=== PATIENT | male | born 1925 | race Caucasian/White ===

== ENCOUNTER 2016-05-05 21:46 | Emergency (ER) | payer OTHER ==
[~2016-05-05] VITALS: Ht 175.3 cm; Wt 72.7 kg
[2016-05-05 21:52] VITALS: Ht 175.3 cm; Wt 72.7 kg
--- NOTE | 2016-05-05 23:00 | RADRPT ---
PROCEDURE: CT BRAIN WITHOUT CONTRAST CLINICAL INDICATION: 89-year-old male with altered mental status. TECHNIQUE: The study was performed utilizing GE J[employer]le[employer] VCT 64-slice CT scanner. Direct axial sections were obtained from the foramen magnum to the vertex without the use of intravenous contrast material. Sagittal and coronal reformations were obtained. Automated exposure control and iterativ e reconstruction techniques were utilized for this examination. The images were viewed on a PACS [employer]. CTD/vol = 45.0 mGy; Total Exam DLP = 720.2 mGy-cm. COMPARISON: None. FINDINGS: There is moderate degree of diffuse cortical and central atrophy with compensatory ventricular enlar gement. There is no evidence for mass effect or midline shift. There are periventricular and deep white matter areas of decreased density consistent with microangiopathic ischemic changes. 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 There is a small lacunar infarct within the posterior bod y of the left caudate nucleus extending into the left dos santos radiata. There is no evidence for acute intra or extra-axial blood. Calcifications are seen within the intracranial carotid arteries bilate rally. The bony calvarium is intact. There is mild polypoidal mucosal thickening within the maxillar y sinuses bilaterally. No air-fluid levels are noted. The mastoid air cells are without significan t soft tissue. IMPRESSION: 1. Moderate diffuse atrophy. 2. Microangiopathic ischemic changes. 3. Old lacunar infarcts within the bilateral thalami, left basal ganglia and dos santos radiata. 4. Vascular calcifications. 5. Polypoidal mucosal thickening maxillary sinuses. .Tucker Strickland MD, MD Date Time Electronically viewed and signed by .Tucker Strickland MD, on 05/05/2016 23:00 .M/
--- NOTE | 2016-05-05 23:01 | RADRPT ---
PROCEDURE: CHEST - 1 VIEW CLINICAL INDICATION: 89-year-old male with altered mental status and sepsis. TECHNIQUE: A single frontal AP view of the chest was performed. The images were reviewed on a PAC S workstation. COMPARISON: None. FINDINGS: The radiograph is mildly rotated. The cardiomediastinal silhouette is mildly enlarged. The thoraci c aortic arch is calcified. There is a shallow inspiration. There is mild bibasilar subsegmental at electasis. There is no evidence for an infiltrate. There is no evidence for congestive heart failur e. There is no evidence for pneumothorax. The osseous structures are intact. IMPRESSION: 1. Rotated radiograph. 2. Mild cardiomegaly. 3. Calcified thoracic aortic arch. 4. Shallow inspiration. 5. Mild bibasilar subsegmental atelectasis. .Tucker Strickland MD, Date Time Electronically viewed and signed by .Tucker Strickland MD, on 05/05/2016 23:01 .Yaz/
[2016-05-05 23:07] LABS: CHLORIDE 104 mmol/L (97-110)
[2016-05-05 23:08] LABS: ALBUMIN 3.6 g/dl (3.3-4.9); POTASSIUM 4.7 mmol/L (3.5-5.1); SODIUM 143 mmol/L (135-144)
[2016-05-05 23:09] LABS: BASOPHILS % 0.3 % (0.0-2.0); EOSINOPHILS # 0.1 10^3/ul (0.0-0.5); EOSINOPHILS % 1.6 % (0.0-7.0); HEMATOCRIT 35.9 % (42.0-52.0); HEMOGLOBIN 12.3 g/dl (14.0-18.0); INR 0.99; LYMPHOCYTES # 0.9 10^3/ul (0.8-2.9); LYMPHOCYTES % 16.8 % (15.0-51.0); MEAN CORPUSCULAR HEMOGLOBIN 32.5 pg (29.0-33.0); MEAN CORPUSCULAR HGB CONC 34.3 g/dl (32.0-37.0); MEAN CORPUSCULAR VOLUME 94.6 fl (82.0-101.0); MEAN PLATELET VOLUME 7.9 fl (7.4-10.4); MONOCYTE # 0.4 10^3/ul (0.3-0.9); MONOCYTES % 8.3 % (0.0-11.0); NEUTROPHIL # 3.9 10^3/ul (1.6-7.5); PLATELET COUNT 123 10^3/UL (140-440); PROTIME 13.1 Sec (12.2-14.2); UNCORRECTED WBC 5.3 10^3/ul (4.8-10.8); WHITE BLOOD COUNT 5.3 10^3/ul (4.8-10.8)
[2016-05-05 23:10] LABS: ANION GAP 15 (8-16); CARBON DIOXIDE 29 mmol/L (21-31); CREATININE 0.99 mg/dl (0.61-1.24); PARTIAL THROMBOPLASTIN TIME 28.6 Sec (25.0-35.0)
[2016-05-05 23:11] LABS: ALANINE AMINOTRANSFERASE 20 IU/L (13-69); ALBUMIN/GLOBULIN RATIO 1.16; ALKALINE PHOSPHATASE 115 IU/L (42-121); ASPARTATE AMINO TRANSFERASE 18 IU/L (15-46); BILIRUBIN,INDIRECT 0.3 mg/dl (0-1.1); BILIRUBIN,TOTAL 0.3 mg/dl (0.2-1.3); BLOOD UREA NITROGEN 30 mg/dl (7-20); CALCIUM 8.9 mg/dl (8.4-10.2); CONDITION 1; GLUCOSE 89 mg/dl (70-220); TOTAL PROTEIN 6.7 g/dl (6.1-8.1)
[2016-05-05 23:12] LABS: SALICYLATE < 1.0 mg/dl (5.0-30.0)
[2016-05-05 23:24] LABS: TROPONIN-I < 0.012 ng/ml (0.00-0.12)
[2016-05-06 00:42] VITALS: BP 134/83; PULSE 64; RESP 14; TEMP 98.4
--- NOTE | 2016-05-06 01:16 | ERA ---
ER Documentation Chief Complaint Date/Time DATE: 05/06/16 TIME: 01:14 Chief Complaint L facial droop and R side weakness,from [facility] HPI Left facial droop and right-sided weakness [facility]. Onset is unknown, but patient was found 5 hours ago. Last normal is unknown. Patient himself provides no history. History is per half-way transfer sheet which is lacking many cohen details. Per paramedics, nursing staff did not know what onset time of symptoms was ROS All systems reviewed and are negative except as per history of present illness. Allergies Allergies: Coded Allergies: No Known Allergy (Unverified , 05/05/16) PMhx/Soc Medical and Surgical Hx: Unable to obtain Hx Alcohol Use: No (UTD) Hx Substance Use: No (UTD) Hx Tobacco Use: No (UTD) Smoking Status: Unknown if ever smoked Physical Exam Vitals Vital Signs Date Time Temp Pulse Resp B/P Pulse Ox O2 Delivery O2 Flow Rate FiO2 05/06/16 00:42 98.4 64 14 134/83 100 Room Air 05/05/16 21:52 97.2 57 17 138/65 97 Physical Exam Const: [] Head: Atraumatic Eyes: Normal Conjunctiva ENT: Normal External Ears, Nose and Mouth. Neck: Full range of motion..~ No meningismus. Resp: Clear to auscultation bilaterally Cardio: Regular rate and rhythm, no murmurs Abd: Soft, non tender, non distended. Normal bowel sounds Skin: No petechiae or rashes Back: No midline or flank tenderness Ext: No cyanosis, or edema Neur: Right-sided facial droop Psych: Normal Mood and Affect Result Diagram: 05/05/16214905/05/162149 Results 24 hrs Laboratory Tests Test 05/05/16 21:50 Acetaminophen Level 13.0ug/ml Activated Partial Thromboplast Time 28.6Sec Alanine Aminotransferase (ALT/SGPT) 20IU/L Albumin 3.6g/dl Albumin/Globulin Ratio 1.16 Alkaline Phosphatase 115IU/L Anion Gap 15 Aspartate Amino Transf (AST/SGOT) 18IU/L Basophils # 0.010^3/ul Basophils % 0.3% Blood Urea Nitrogen 30mg/dl Calcium Level 8.9mg/dl Carbon Dioxide Level 29mmol/L Chloride Level 104mmol/L Creatinine 0.99mg/dl Direct Bilirubin 0.00mg/dl Eosinophils # 0.110^3/ul Eosinophils % 1.6% Globulin 3.10g/dl Glucose Level 89mg/dl Hematocrit 35.9% Hemoglobin 12.3g/dl INR International Normalized Ratio 0.99 Indirect Bilirubin 0.3mg/dl Lymphocytes # 0.910^3/ul Lymphocytes % 16.8% Mean Corpuscular Hemoglobin 32.5pg Mean Corpuscular Hemoglobin Concent 34.3g/dl Mean Corpuscular Volume 94.6fl Mean Platelet Volume 7.9fl Monocytes # 0.410^3/ul Monocytes % 8.3% Neutrophils # 3.910^3/ul Neutrophils % 73.0% Nucleated Red Blood Cells # 0.010^3/ul Nucleated Red Blood Cells % 0.0/100WBC Platelet Count 30763^3/UL Potassium Level 4.7mmol/L Prothrombin Time 13.1Sec Prothrombin Time Ratio 1.0 Red Blood Count 3.8010^6/ul Red Cell Distribution Width 13.0% Salicylates Level < 1.0mg/dl Sodium Level 143mmol/L Total Bilirubin 0.3mg/dl Total Protein 6.7g/dl Troponin I < 0.012ng/ml White Blood Count 5.310^3/ul Procedures/MDM EKG: Rate/Rhythm: Normal Sinus Rhythm QRS, ST, T-waves: No changes consistent w/ acute ischemia Impression: No evidence of ischemia or arrhythmia Chest X-ray 1V Interpreted by me: Soft Tissue: No acute abnormalities Bones: No acute abnormalities Mediastinum/Cardiac Silhouette/Lungs: No acute abnormalities CT shows no acute abnormality. Please radialis full dictation for full report Medical decision making: This patient comes in with strokelike symptoms. He has seen no resolution in facial to persist. At this point is been given a dose of aspirin. Will be transferred to [place]. Critical Care: Time: 45 minutes Treatments/Evaluations: Close monitoring and treatment of unstable vital signs, cardiorespiratory, and neurologic status, while maintaining tight balance of fluid, respiratory, and cardiac interventions. Departure Diagnosis: Primary Impression: Stroke Qualified Code: I63.9 - Cerebrovascular accident (CVA), unspecified mechanism Condition: Critical UYEN KIM May 06, 2016 01:16
== END 2016-05-06 03:20 | disposition short-term general hospital (02) ==
LOC: E/R 21:46
DX: I63.9 Cerebral infarction, unspecified (principal); R53.1 Weakness; R40.2132 Coma scale, eyes open, to sound, at arrival to emergency department; R40.2252 Coma scale, best verbal response, oriented, at arrival to emergency department; R40.2362 Coma scale, best motor response, obeys commands, at arrival to emergency department
CPT/HCPCS: 70450; 71010; 80053; 80306; 84484; 85025; 85610; 85730; 93005